=== PATIENT | male | born 1990 | race Caucasian/White ===

== ENCOUNTER 2020-05-12 08:59 | Inpatient (IN) | payer MEDICAID, OTHER ==
[~2020-05-12] VITALS: Ht 190.5 cm; Wt 82.2 kg
[2020-05-12 09:49] LABS: BASOPHILS % (AUTO) 0.4 % (0.0-2.0); EOSINOPHILS % (AUTO) 3.5 % (1.0-6.0); HEMATOCRIT 47.6 % (41-53); LYMPHOCYTES # (AUTO) 1.3 K/uL (1.0-4.8); LYMPHOCYTES % (AUTO) 14.7 % (22.0-44.0); MEAN CORPUSCULAR HEMOGLOBIN 30.9 pg (26.0-34.0); MEAN CORPUSCULAR HGB CONC 33.6 G/dL (31.0-37.0); MEAN CORPUSCULAR VOLUME 92 fL (80-100); MONOCYTES # (AUTO) 0.7 K/uL (0.1-1.0); MONOCYTES % (AUTO) 7.7 % (2.0-9.0); NEUTROPHILS # (AUTO) 6.7 K/uL (1.8-7.7); NEUTROPHILS % (AUTO) 73.7 % (40.0-70.0); PLATELET COUNT (AUTO) 332 K/uL (150-450); RED BLOOD CELL COUNT(AUTO) 5.17 MIL/uL (4.50-5.90); RED CELL DISTRIBUTION WIDTH 13.7 % (11.5-14.5)
[2020-05-12 09:56] LABS: ANION GAP 4 mmol/L (8-16); CALCIUM, TOTAL 9.3 mg/dL (8.8-10.5); CARBON DIOXIDE 32 mmol/L (22-29); CHLORIDE 104 mmol/L (98-107); CREATININE 1.29 mg/dL (0.60-1.30); GLOMERULAR FILTR. RATE CALC > 60 mL/min (>60); GLUCOSE,RANDOM 90 mg/dL (70-110); POTASSIUM 4.1 mmol/L (3.5-5.1); SODIUM SERUM 140 mmol/L (136-145); UREA NITROGEN, BLOOD 12 mg/dL (7-18)
[2020-05-12 10:02] LABS: ALANINE AMINOTRANSFERASE 32 U/L (12-78); ALBUMIN 3.9 g/dL (3.4-5.0); ALKALINE PHOSPHATASE 121 U/L (46-116); ASPARTATE AMINOTRANSFERASE 23 U/L (15-37); BILIRUBIN,TOTAL 1.4 mg/dL (0.1-1.0); TOTAL PROTEIN, SERUM 8.1 g/dL (6.4-8.2)
[2020-05-12] MEDS ORDERED: LORazepam 2 MG TABLET PO ONE (14:00)
[2020-05-12 14:18] LABS: AMPHET/METH SCREEN,URINE NEGATIVE (NEGATIVE); BENZODIAZEPINES SCREEN,URINE NEGATIVE (NEGATIVE); CANNABINOID SCREEN,URINE NEGATIVE (NEGATIVE); COCAINE SCREEN,URINE NEGATIVE (NEGATIVE); METHADONE SCREEN, URINE NEGATIVE (NEGATIVE); OPIATE SCREEN,URINE NEGATIVE (NEGATIVE)
[2020-05-12 14:23] LABS: PHENCYCLIDINE SCREEN,URINE NEGATIVE (NEGATIVE)
[2020-05-12 14:48] LABS: BARBITURATE SCREEN, URINE NEGATIVE (NEGATIVE)
[2020-05-12 17:48] VITALS: BP 120/87
[2020-05-12] MEDS ORDERED: ZOLPIDEM TARTRATE 10 MG TABLET PO PRN (19:30)
[2020-05-13 06:36] VITALS: BP 118/82
[2020-05-13] MEDS ORDERED: ACETAMINOPHEN 325 MG TABLET PO PRN (08:00)
[2020-05-13] MEDS ORDERED: ALBUTEROL SULFATE HFA 90 MCG/PUFF 8 GM INHALER IH PRN (08:00)
[2020-05-13] MEDS ORDERED: MAGNESIUM HYDROXIDE SUSPENSION 30 ML UDCUP PO PRN (08:00)
[2020-05-13] MEDS ORDERED: DOCUSATE SODIUM 100 MG CAPSULE PO PRN (08:00)
[2020-05-13] MEDS ORDERED: ONDANSETRON HCL 4 MG TABLET PO PRN (08:00)
[2020-05-13] MEDS ORDERED: NICOTINE 14 MG/24 HOUR PATCH TD PRN (08:00)
[2020-05-13] MEDS ORDERED: CloNIDine HCL 0.1 MG TABLET PO PRN (08:00)
[2020-05-13] MEDS ORDERED: GuaiFENesin/D-METHORPHAN [SUGAR-FREE] 200-20MG/10 ML SYRUP UDCUP PO PRN (08:00)
[2020-05-13] MEDS ORDERED: LOPERAMIDE HCL 2 MG CAPSULE PO PRN (08:00)
[2020-05-13] MEDS ORDERED: PETROLATUM,WHITE 28 GM JELLY TP PRN (08:00)
[2020-05-13] MEDS ORDERED: MAG HYDROX/AL HYDROX/SIMETH ES 30 ML SUSPENSION UDCUP PO PRN (08:00)
[2020-05-13 08:05] VITALS: BP 113/68
[2020-05-13 16:04] VITALS: BP 139/87
[2020-05-13] MEDS: LORazepam 2 MG TABLET PO PRN (16:54)
[2020-05-13] MEDS: HALOPERIDOL 5 MG TABLET PO PRN (16:54)
[2020-05-13] MEDS: OLANZapine 5 MG TABLET PO SCH (20:42)
[2020-05-14 06:13] VITALS: BP 101/62
[2020-05-14] MEDS: OLANZapine 5 MG TABLET PO SCH ×2 (08:46→20:14)
[2020-05-14 08:53] VITALS: BP 122/74
[2020-05-14 16:03] VITALS: BP 124/68
[2020-05-14] MEDS: LORazepam 2 MG TABLET PO PRN (16:44)
[2020-05-14] MEDS: HALOPERIDOL 5 MG TABLET PO PRN (16:44)
[2020-05-15 05:18] VITALS: BP 122/64
[2020-05-15] MEDS: OLANZapine 5 MG TABLET PO SCH ×2 (07:55→20:41)
[2020-05-15 08:04] VITALS: BP 126/72
[2020-05-15 16:05] VITALS: BP 122/72
[2020-05-16 05:52] VITALS: BP 120/81
[2020-05-16 08:06] VITALS: BP 126/68
[2020-05-16] MEDS: OLANZapine 5 MG TABLET PO SCH (08:27)
[2020-05-16] MEDS: LORazepam 2 MG TABLET PO PRN ×2 (08:28→16:44)
[2020-05-16 16:06] VITALS: BP 122/87
[2020-05-16] MEDS: HALOPERIDOL 5 MG TABLET PO PRN (16:44)
[2020-05-16] MEDS: OLANZapine 10 MG TABLET PO SCH (20:05)
[2020-05-17 06:13] VITALS: BP 114/75
[2020-05-17 08:00] VITALS: BP 120/76
[2020-05-17] MEDS: OLANZapine 5 MG TABLET PO SCH (08:35)
[2020-05-17] MEDS: LORazepam 2 MG TABLET PO PRN ×2 (08:35→16:06)
[2020-05-17] MEDS: HALOPERIDOL 5 MG TABLET PO PRN (16:06)
[2020-05-17 16:22] VITALS: BP 128/68
[2020-05-17] MEDS: OLANZapine 10 MG TABLET PO SCH (20:09)
[2020-05-18 05:09] VITALS: BP 126/64
[2020-05-18] MEDS: LORazepam 2 MG TABLET PO PRN (08:00)
[2020-05-18] MEDS: OLANZapine 5 MG TABLET PO SCH (08:02)
[2020-05-18 08:08] VITALS: BP 134/81
[2020-05-18] MEDS: IBUPROFEN 400 MG TABLET PO PRN (12:57)
[2020-05-18 16:03] VITALS: BP 134/80
[2020-05-18] MEDS: OLANZapine 10 MG TABLET PO SCH (20:12)
[2020-05-19 04:54] VITALS: BP 124/74
[2020-05-19] MEDS: OLANZapine 5 MG TABLET PO SCH (08:07)
[2020-05-19] MEDS: MULTIVITAMINS, THERAPEUTIC TABLET PO SCH (08:07)
[2020-05-19] MEDS: LORazepam 2 MG TABLET PO PRN (08:21)
[2020-05-19 08:47] VITALS: BP 130/78
[2020-05-19] MEDS: IBUPROFEN 400 MG TABLET PO PRN (10:28)
[2020-05-19 16:07] VITALS: BP 114/67
[2020-05-19] MEDS: OLANZapine 10 MG TABLET PO SCH (20:37)
[2020-05-20 08:03] VITALS: BP 126/72
[2020-05-20] MEDS: MULTIVITAMINS, THERAPEUTIC TABLET PO SCH (08:13)
[2020-05-20] MEDS: OLANZapine 5 MG TABLET PO SCH (08:13)
[2020-05-20 16:05] VITALS: BP 133/68
[2020-05-20] MEDS: OLANZapine 10 MG TABLET PO SCH (20:39)
[2020-05-21 03:11] VITALS: BP 118/74
[2020-05-21] MEDS: MULTIVITAMINS, THERAPEUTIC TABLET PO SCH (09:10)
[2020-05-21] MEDS: OLANZapine 5 MG TABLET PO SCH (09:10)
[2020-05-21 16:03] VITALS: BP 110/64
[2020-05-21] MEDS: OLANZapine 10 MG TABLET PO SCH (20:16)
[2020-05-22] MEDS: MULTIVITAMINS, THERAPEUTIC TABLET PO SCH (08:29)
[2020-05-22] MEDS: OLANZapine 5 MG TABLET PO SCH (08:29)
[2020-05-22] MEDS ORDERED: OLAN10TA3 PO (09:05)
[2020-05-22] MEDS ORDERED: OLAN5TAB2 PO (09:05)
== END 2020-05-22 13:00 | disposition home or self-care (01) | DRG 750 ==
LOC: EMS 09:00 → B3A 15:01
DX: F20.0 Paranoid schizophrenia (principal); G44.209 Tension-type headache, unspecified, not intractable; K59.00 Constipation, unspecified; L60.0 Ingrowing nail; R45.851 Suicidal ideations; F19.10 Other psychoactive substance abuse, uncomplicated; Z87.891 Personal history of nicotine dependence; Z91.14 Patient's other noncompliance with medication regimen; Z59.0 Homelessness
CPT/HCPCS: 87426; G0480